=== PATIENT | female | born 1945 | race Caucasian/White ===

== ENCOUNTER 2017-01-04 09:23 | Day surgery (SDC) | payer OTHER, MEDICARE ==
[2016-12-30 10:55] VITALS: BMI 19.1
[2017-01-04] MEDS ORDERED: PROPOFOL 20 ML ONE ×2 (10:06)
[2017-01-04 10:59] VITALS: TEMP 98
[2017-01-04 11:22] VITALS: PULSE 75
[2017-01-04 12:00] VITALS: BP 106/64
== END 2017-01-04 11:30 | disposition home or self-care (01) ==
LOC: FASU-ENDO 09:23
PROVIDERS: ATTEND Internal Medicine Gastroenterology
PROC: 0DJD8ZZ Inspection of Lower Intestinal Tract, Via Natural or Artificial Opening Endoscopic (ICD-10-PCS; principal; 2017-01-04 10:23)
DX: Z12.11 Encounter for screening for malignant neoplasm of colon (principal)

== ENCOUNTER 2020-10-23 12:29 | Emergency (ER) | payer OTHER, MEDICARE ==
[2020-10-23 13:03] VITALS: TEMP 98.1; BMI 15.7
[2020-10-23 13:24] LABS: BASO % 3.9 % (0-2.0); EOS % 0.5 % (0-4.5); HEMATOCRIT 40.1 % (32.4-45.2); HEMOGLOBIN 13.4 GM/dl (10.7-15.3); LYMPH % 14.5 % (8-40); MCHC 33.4 g/dl (32.0-36.0); MEAN CELL VOLUME 92.8 fl (80-96); NEUT % 69.1 % (42.8-82.8); PLATELET COUNT 192 K/MM3 (134-434); RBC 4.32 M/mm3 (3.60-5.2); RDW 13.7 % (11.6-15.6); WHITE BLOOD COUNT 3.7 K/mm3 (4.0-10.8)
[2020-10-23 13:33] LABS: INR 1.24 (0.82-1.09); PROTHROMBIN TIME (PATIENT) 13.7 SEC (10.2-13.0)
[2020-10-23 14:03] LABS: ALBUMIN 3.6 g/dl (3.4-5.0); BILIRUBIN,TOTAL 0.6 mg/dl (0.2-1); CREATININE 0.6 mg/dl (0.55-1.3); TOT PROT 7.5 g/dl (6.4-8.2)
[2020-10-23 15:00] VITALS: BP 143/84; PULSE 92
== END 2020-10-23 15:38 | disposition home or self-care (01) ==
LOC: FER 12:29
DX: T80.818A Extravasation of other vesicant agent, initial encounter (principal); J44.9 Chronic obstructive pulmonary disease, unspecified
CPT/HCPCS: 36415; 80053; 82550; 84484; 85025; 85379; 85610; 93005; 93970-TC; 99285-25; C9803; U0003; U0005

== ENCOUNTER 2020-12-03 04:43 | Day surgery (SDC) | payer OTHER, MEDICARE ==
[2020-12-02 14:19] VITALS: BMI 15.7
[2020-12-03] MEDS ORDERED: ROCURONIUM BROMIDE 50 MG/5 ML SYRINGE ONE (11:25)
[2020-12-03] MEDS ORDERED: PROPOFOL 20 ML ONE (11:25)
[2020-12-03] MEDS ORDERED: NEOSTIGMINE METHYLSULFATE 0.5 MG/ML - 10 ML MDV ONE (11:27)
[2020-12-03] MEDS ORDERED: MIDAZOLAM HCL 2 MG/2 ML SINGLE DOSE VIAL ONE (11:29)
[2020-12-03] MEDS ORDERED: ACETAMINOPHEN 325 MG TABLET (FP) PO ONE ×2 (11:35→15:49)
[2020-12-03] MEDS ORDERED: oxyCODONE HCL 5 MG TABLET PO PRN ×2 (11:35→15:49)
[2020-12-03] MEDS ORDERED: ONDANSETRON 4 MG/2 ML VIAL IVPUSH PRN ×2 (11:35→15:49)
[2020-12-03] MEDS ORDERED: LACTATED RINGERS SOLUTION 1,000 ML IV SCH ×2 (11:45→15:49)
[2020-12-03] MEDS ORDERED: EPHEDRINE SULFATE/0.9% NACL/PF 50 MG/10 ML SYRINGE NR ONE (11:59)
[2020-12-03] MEDS ORDERED: ACETAMINOPHEN 325 MG TABLET (FP) ONE (15:58)
[2020-12-04 10:08] VITALS: BP 107/57; PULSE 75; TEMP 98.8
== END 2020-12-04 14:33 | disposition home or self-care (01) ==
LOC: JASU-SURG 04:43 → JASUSAT 04:43 → J4W 17:40 → JASUSAT 12-04 14:33
PROVIDERS: ATTEND Internal Medicine
PROC: 0B9M8ZX Drainage of Bilateral Lungs, Via Natural or Artificial Opening Endoscopic, Diagnostic (ICD-10-PCS; 2020-12-03)
PROC: 0B9C8ZX Drainage of Right Upper Lung Lobe, Via Natural or Artificial Opening Endoscopic, Diagnostic (ICD-10-PCS; principal; 2020-12-03 11:30)
DX: J47.9 Bronchiectasis, uncomplicated (principal)
CPT/HCPCS: 71045-TC-FY; 87070; 87102; 87116; 87205; 87206; 87210; 88108; 88305-TC; 94760; 97161-GP

== ENCOUNTER 2022-01-14 14:31 | Inpatient (IN) | payer OTHER, MEDICARE ==
[2022-01-14] MEDS ORDERED: SODIUM CHLORIDE 0.9% 1000 ML INFUS.BAG IV ONE (15:41)
[2022-01-14 16:54] LABS: ALBUMIN 3.3 g/dl (3.4-5.0); BILIRUBIN,TOTAL 1.1 mg/dl (0.2-1); CALCIUM 9.2 mg/dl (8.5-10); CREATININE 0.5 mg/dl (0.55-1.3); TOT PROT 6.6 g/dl (6.4-8.2)
[2022-01-14 17:04] LABS: HEMATOCRIT 42.9 % (32.4-45.2); HEMOGLOBIN 14.3 G/dL (10.7-15.3); MCH 32.3 pg (25.7-33.7); MCHC 33.3 g/dl (32.0-36.0); MEAN PLT VOLUME 8.5 fl (7.5-11.1); PLATELET COUNT 81.7 10^3/uL (134-434); RBC 4.42 10^6/uL (3.60-5.2); RDW 14.2 % (11.6-15.6); WHITE BLOOD COUNT 4.3 10^3/uL (4.0-10.8)
[2022-01-14 17:07] LABS: EPITHELIAL CELLS FEW /hpf
[2022-01-14 17:08] LABS: TRIPLE PHOSPHATE CRYSTAL FEW /hpf (NONE SEEN)
[2022-01-14] MEDS ORDERED: ASPIRIN 81 MG CHEWABLE TABLETS PO ONE (17:23)
[2022-01-14] MEDS ORDERED: ASPIRIN 81 MG CHEWABLE TABLETS ONE (19:06)
[2022-01-14 20:05] LABS: PLATELET ESTIMATE DECREASED
[2022-01-14 21:26] VITALS: BMI 15.3
[2022-01-14] MEDS: MIRTAZAPINE 15 MG TABLET (FP) PO SCH (22:32)
[2022-01-15 07:36] LABS: HEMATOCRIT 40.7 % (32.4-45.2); HEMOGLOBIN 13.5 G/dL (10.7-15.3); MCH 32.6 pg (25.7-33.7); MCHC 33.2 g/dl (32.0-36.0); MEAN CELL VOLUME 98.3 fl (80-96); MEAN PLT VOLUME 8.2 fl (7.5-11.1); PLATELET COUNT 71.3 10^3/uL (134-434); RBC 4.14 10^6/uL (3.60-5.2); RDW 14.4 % (11.6-15.6); WHITE BLOOD COUNT 3.5 10^3/uL (4.0-10.8)
[2022-01-15 07:51] LABS: ALBUMIN 3.1 g/dl (3.4-5.0); CALCIUM 8.7 mg/dl (8.5-10); CREATININE 0.4 mg/dl (0.55-1.3); TOT PROT 6.1 g/dl (6.4-8.2)
[2022-01-15] MEDS ORDERED: MULTIVITAMINS (DAILY MVI) TABLET (FP) PO SCH (10:00)
[2022-01-15] MEDS ORDERED: AMINO ACIDS/PROTEIN HYDROLYS 30 ML LIQUID.PKT PO SCH (17:30)
[2022-01-15] MEDS: SODIUM CHLORIDE 1,000 ML IV SCH (19:22)
[2022-01-15] MEDS ORDERED: THIAMINE HCL 100 MG TABLET (FP) PO SCH (22:00)
[2022-01-15] MEDS ORDERED: ATORVASTATIN CA 10 MG TABLET (FP) PO SCH (22:00)
[2022-01-15] MEDS ORDERED: LORazepam 2 MG/ML SDV VIAL IVPUSH STA (22:04)
[2022-01-15 22:32] LABS: HEMATOCRIT 43.3 % (32.4-45.2); HEMOGLOBIN 14.1 G/dL (10.7-15.3); MCH 32.3 pg (25.7-33.7); MCHC 32.5 g/dl (32.0-36.0); MEAN CELL VOLUME 99.4 fl (80-96); MEAN PLT VOLUME 8.4 fl (7.5-11.1); PLATELET COUNT 55.1 10^3/uL (134-434); RBC 4.36 10^6/uL (3.60-5.2); RDW 14.3 % (11.6-15.6); WHITE BLOOD COUNT 5.6 10^3/uL (4.0-10.8)
[2022-01-15 22:34] LABS: BILIRUBIN,TOTAL 0.7 mg/dl (0.2-1); CALCIUM 8.7 mg/dl (8.5-10); CREATININE 0.4 mg/dl (0.55-1.3); MAGNESIUM 1.9 mg/dL (1.8-2.4); TOT PROT 6.2 g/dl (6.4-8.2)
[2022-01-15 22:42] LABS: PLATELET ESTIMATE SLT DECREASE
[2022-01-16] MEDS ORDERED: SODIUM CHLORIDE 1,000 ML IV STA (00:34)
[2022-01-16] MEDS: MIRTAZAPINE 15 MG TABLET (FP) PO SCH (02:14)
[2022-01-16] MEDS ORDERED: SODIUM CHLORIDE 500 ML IV STA (02:15)
[2022-01-16 02:17] LABS: ARTERIAL BLOOD GAS BASE EXCESS 3.8 mmol/L (-2-2)
[2022-01-16 02:22] LABS: ARTERIAL BLOOD GAS pH 7.121 (7.350-7.450)
[2022-01-16] MEDS ORDERED: LORazepam 2 MG/ML SDV VIAL IVPUSH PRN (03:43)
[2022-01-16 08:12] LABS: ALBUMIN 2.9 g/dl (3.4-5.0); BILIRUBIN,TOTAL 0.9 mg/dl (0.2-1); CALCIUM 8.3 mg/dl (8.5-10); CREATININE 0.4 mg/dl (0.55-1.3); MAGNESIUM 1.8 mg/dL (1.8-2.4); TOT PROT 5.9 g/dl (6.4-8.2)
[2022-01-16 08:33] LABS: HEMATOCRIT 41.7 % (32.4-45.2); HEMOGLOBIN 13.6 G/dL (10.7-15.3); MCH 32.7 pg (25.7-33.7); MCHC 32.5 g/dl (32.0-36.0); MEAN CELL VOLUME 100.5 fl (80-96); MEAN PLT VOLUME 8.6 fl (7.5-11.1); PLATELET COUNT 42.5 10^3/uL (134-434); RBC 4.15 10^6/uL (3.60-5.2); RDW 14.2 % (11.6-15.6); WHITE BLOOD COUNT 4.9 10^3/uL (4.0-10.8)
[2022-01-16] MEDS ORDERED: MUPIROCIN 2% TOPICAL OINTMENT FOR DECOLONIZATION NS SCH (10:00)
[2022-01-16] MEDS ORDERED: ENOXAPARIN NA (PORCINE) 40 MG/0.4 ML DISP.SYRIN SQ SCH (10:00)
[2022-01-16] MEDS: SODIUM CHLORIDE 1,000 ML IV SCH (10:14)
[2022-01-16] MEDS ORDERED: SODIUM CHLORIDE 1,000 ML IV SCH (12:06)
[2022-01-16] MEDS ORDERED: morphine SULFATE 4 MG/ML VIAL IVPUSH PRN (12:06)
[2022-01-16] MEDS ORDERED: ACETAMINOPHEN 650 MG SUPP.RECT RC PRN (12:11)
[2022-01-16 14:26] VITALS: BP 106/55; PULSE 108; TEMP 98.8
[2022-01-16] MEDS ORDERED: CHLORHEXIDINE GLUCONATE 4% CLEANSER FOR DECOLONIZATION TP SCH (22:00)
== END 2022-01-16 18:13 | disposition expired | DRG 70 ==
LOC: FER 14:31 → FM/S 20:27 → UNDODISIN 01-15 13:38 → FM/S 01-16
PROVIDERS: ADMIT Internal Medicine; ATTEND Nurse Practitioner Family
PROC: 5A1935Z Respiratory Ventilation, Less than 24 Consecutive Hours (ICD-10-PCS; principal; 2022-01-16)
PROC: 0BH17EZ Insertion of Endotracheal Airway into Trachea, Via Natural or Artificial Opening (ICD-10-PCS; 2022-01-16)
DX: G93.41 Metabolic encephalopathy (principal); J96.01 Acute respiratory failure with hypoxia; R64 Cachexia; Z68.1 Body mass index [BMI] 19.9 or less, adult; E44.0 Moderate protein-calorie malnutrition; I27.20 Pulmonary hypertension, unspecified; E78.5 Hyperlipidemia, unspecified; J47.9 Bronchiectasis, uncomplicated; Z99.81 Dependence on supplemental oxygen; R53.1 Weakness; R56.9 Unspecified convulsions; Z66 Do not resuscitate; E86.0 Dehydration
CPT/HCPCS: 36415; 36600; 70450-TC; 71045-TC-FY; 80053; 81003; 81015; 82607; 82803; 82962; 83605; 83735; 84146; 84443; 84484; 85025; 85027; 86780; 87086; 93005; 94660; 97116-GP; 97162-GP; 99285-25; C9803-CS; U0003; U0005